=== PATIENT | female | born 1955 | race African-American/Black ===

== ENCOUNTER 2023-05-14 10:35 | Day surgery (SDC) | payer OTHER ==
[2023-05-10 12:23] VITALS: BMI 28.3
[2023-05-14 11:14] VITALS: PULSE 60; RESP 18
[2023-05-14 12:55] VITALS: BP 149/73; TEMP 97.8
== END 2023-05-14 13:14 | disposition home or self-care (01) ==
LOC: FASU-ENDO 10:35
PROVIDERS: ATTEND Internal Medicine Gastroenterology
PROC: 0DJD8ZZ Inspection of Lower Intestinal Tract, Via Natural or Artificial Opening Endoscopic (ICD-10-PCS; principal; 2023-05-14 12:10)
DX: Z12.11 Encounter for screening for malignant neoplasm of colon (principal)

== ENCOUNTER 2023-08-05 22:18 | Emergency (ER) | payer OTHER ==
[2023-08-05 22:36] VITALS: BP 148/70; PULSE 68; RESP 18; TEMP 98.4; BMI 27.4
[2023-08-05] MEDS ORDERED: diphenhydrAMINE HCL 25 MG CAPSULE (FP) PO ONE ×2 (23:11→23:12)
[2023-08-05] MEDS ORDERED: DEXAMETHASONE 4 MG TABLET (FP) PO ONE (23:11)
[2023-08-05] MEDS ORDERED: DEXAMETHASONE SOD PHOSPHATE 10 MG/1 ML VIAL ONE (23:12)
== END 2023-08-05 23:38 | disposition left against medical advice (07) ==
LOC: JER 22:18
DX: R22.0 Localized swelling, mass and lump, head (principal); R13.10 Dysphagia, unspecified
CPT/HCPCS: 99283-25